=== PATIENT | male | born 1995 | race Caucasian/White ===

== ENCOUNTER 2018-07-31 12:20 | Inpatient (IN) | payer OTHER ==
[2018-07-28 11:28] VITALS: BMI 19.8
[2018-07-31] MEDS ORDERED: oxyCODONE HCL 5 MG TABLET ONE (13:19)
[2018-07-31] MEDS ORDERED: oxyCODONE HCL 5 MG TABLET PO ONE ×2 (13:28→16:30)
[2018-07-31] MEDS ORDERED: oxyCODONE HCL 10 MG SUSTAINED ACTING TABLET PO ONE (16:16)
[2018-07-31] MEDS ORDERED: oxyCODONE HCL 10 MG SUSTAINED ACTING TABLET ONE (16:18)
[2018-07-31] MEDS ORDERED: HEPARIN NA (PORCINE) 5,000 UNITS/ML 1ML VIAL ONE (19:59)
[2018-07-31] MEDS ORDERED: BUPIVACAINE LIPOSOME/PF (EXPAREL) 266 MG/20 ML VIAL NR ONE (20:00)
[2018-07-31] MEDS ORDERED: THROMBIN (BOVINE) 20,000 UNIT VIAL TP ONE (20:00)
[2018-07-31] MEDS ORDERED: MIDAZOLAM HCL 2 MG/2 ML SINGLE DOSE VIAL ONE (20:36)
[2018-07-31] MEDS ORDERED: fentaNYL CITRATE 250 MCG/5 ML VIAL ONE ×2 (20:36→21:27)
[2018-07-31] MEDS ORDERED: PROPOFOL 20 ML ONE ×6 (20:37→22:10)
[2018-07-31] MEDS ORDERED: ROCURONIUM BROMIDE 50 MG/5 ML VIAL ONE (20:37)
[2018-07-31] MEDS ORDERED: SUCCINYLCHOLINE CHLORIDE 200 MG/10 ML VIAL ONE (20:37)
[2018-07-31] MEDS ORDERED: LIDOCAINE HCL/PF 2% SDV 5ML VIAL ONE (20:39)
[2018-07-31] MEDS ORDERED: VANCOMYCIN 1,000 MG VIAL (RESTRICTED TO ID ONLY) IVPB ONE (20:55)
[2018-07-31] MEDS ORDERED: ceFAZolin SODIUM 1 GM VIAL IVPB ONE (20:55)
[2018-07-31] MEDS ORDERED: THROMBIN (BOVINE) 5,000 UNIT VIAL TP ONE (21:00)
[2018-07-31] MEDS ORDERED: GELATIN, ABSORBABLE 12-7MM EACH SPONGE TP ONE (21:00)
[2018-07-31] MEDS ORDERED: ceFAZolin SODIUM 1 GM VIAL ONE (21:03)
[2018-07-31] MEDS ORDERED: VANCOMYCIN 1,000 MG VIAL (RESTRICTED TO ID ONLY) ONE (21:03)
[2018-07-31] MEDS ORDERED: TRANEXAMIC ACID 1000 MG/10 ML VIAL ONE (21:10)
[2018-07-31] MEDS ORDERED: DEXAMETHASONE SOD PHOSPHATE 4 MG/1 ML VIAL ONE (22:10)
[2018-07-31] MEDS ORDERED: ONDANSETRON 4 MG/2 ML VIAL ONE ×2 (22:10→23:25)
[2018-07-31] MEDS ORDERED: GLYCOPYRROLATE 0.2 MG/1 ML VIAL ONE (22:33)
[2018-07-31] MEDS ORDERED: NEOSTIGMINE METHYLSULFATE 0.5 MG/1 ML - 10 ML MDV ONE (22:34)
--- NOTE | 2018-07-31 23:43 | PN ---
Progress Note (short form) - Note Progress Note: 22M s/p L5 laminectomy; L4 & S1 laminotomies; L5-S1 PLIF; L5-S1 posterior instrumentation; L5-S1 posterolateral arthrodesis; bone graft; bone marrow aspiration POD #0. -Admit to ICU post-op. 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 -DVT PPx: - Mechanical only: LEDA's, SCD's. -Incentive spirometry q15min. -PT/OT/Rehab, OOB. -WBAT B/L LE. -q4h B/L LE NV checks. -Post-op antibiotics x 2 doses. -NPO until flatus. -f/u AM labs. -f/u drain output. -d/c Reyes catheter when patient ambulating comfortably. -Care per ICU & medical hospitalist team. -Discharge planning: f/u 08/11/2018 at [facility] [place] office; call for appointment; . -Will follow. Rohith Campo MD (Orthopaedic Surgery).
[2018-07-31] MEDS ORDERED: LACTATED RINGERS SOLUTION 1,000 ML IV SCH (23:45)
--- NOTE | 2018-07-31 23:46 | OP ---
Operative Note - Note: Operative Date: 07/31/18 Pre-Operative Diagnosis: 1. 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 2. L5-S1 spinal stenosis with neurogenic claudication. 3. L5-S1 segmental instability Operation: 1. L5 laminectomy. 2. L3 & S1 laminotomies. 3. L5-S1 PLIF. 4. L5 facetectomy/osteotomy. 5. L5-S1 posterior instrumentation. 6. L5-S1 posterolateral arthrodesis. 7. Bone autograft. 8. Bone allograft. 9. Bone marrow aspiration. 10. Complex wound closure (10cm). 11. Biplanar fluoroscopy. 12. Intra-operative neural monitoring. 13. Bilateral L4, L5, S1 dorsal ramus nerve blocks. Post-Operative Diagnosis: Same as Pre-op Surgeon: Rohith Campo Public Safety Director: Tye Campo Anesthesiologist/SOURCING ASSISTANT: Ashley Sung Anesthesia: General, Local Specimens Removed: L5-S1 disc Estimated Blood Loss (mls): 600 Drains & Tubes with Location: 1 x deep HemoVac Blood Volume Replaced (mls): 140 (Cell Saver) Fluid Volume Replaced (mls): 1,400 (Crystalloid) Operative Report Dictated: Yes
[2018-07-31] MEDS ORDERED: ONDANSETRON 4 MG/2 ML VIAL IVPUSH PRN (23:49)
[2018-08-01] MEDS ORDERED: ONDANSETRON 4 MG/2 ML VIAL IVPUSH PRN (00:04)
[2018-08-01] MEDS ORDERED: ACETAMINOPHEN 1000 MG/100 ML VIAL (NON FORMULARY) IVPB ONE (00:04)
[2018-08-01] MEDS: ACETAMINOPHEN 1000 MG/100 ML VIAL (NON FORMULARY) IVPB SCH ×3 (00:10→15:55)
[2018-08-01] MEDS: HYDROmorphone *PCA* 10MG/50ML DISP.SYRIN PCA SCH ×2 (00:20→19:40)
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
[2018-08-01] MEDS ORDERED: HYDROmorphone *PCA* 10MG/50ML DISP.SYRIN PCA SCH (02:03)
[2018-08-01] MEDS: LACTATED RINGERS SOLUTION 1,000 ML IV SCH ×2 (03:03→08:33)
[2018-08-01] MEDS: CEFAZOLIN 1 GM/D5W 1 GM/50 ML BAG IVPB SCH ×2 (05:05→12:50)
[2018-08-01 06:30] LABS: HEMATOCRIT 38.2 % (35.4-49); HEMOGLOBIN 12.6 GM/dL (11.7-16.9); MCH 30.9 pg (25.7-33.7); MCHC 32.9 g/dl (32.0-35.9); MEAN CELL VOLUME 93.9 fl (80-96); MEAN PLT VOLUME 8.2 fl (7.5-11.1); PLATELET COUNT 185 K/MM3 (134-434); RBC 4.07 M/mm3 (4.00-5.60); RDW 13.3 % (11.9-15.9); WHITE BLOOD COUNT 7.4 K/mm3 (4.0-10.0)
[2018-08-01 06:51] LABS: ANION GAP 7 MMOL/L (8-16); BLOOD UREA NITROGEN 14 mg/dL (7-18); CHLORIDE 104 mmol/L (98-107); CO2 27 mmol/L (21-32); CREATININE 0.9 mg/dL (0.55-1.3); GLUCOSE,RANDOM 113 mg/dL (74-106); POTASSIUM 4.6 mmol/L (3.5-5.1); SODIUM 137 mmol/L (136-145)
[2018-08-01] MEDS ORDERED: oxyCODONE HCL 5 MG TABLET PO PRN (08:38)
[2018-08-01] MEDS ORDERED: PT OWN MED DRAWER 7, Y5N ONE (09:32)
--- NOTE | 2018-08-01 09:44 | PN ---
Progress Note (short form) - Note Progress Note: Anesthesiology Post-op/Pain Service 22 y.o. man POD#1 s/p lumbar PLIF under GA with post-op FIREWALL SECURITY ENGINEER. Pt. is sitting -up, taking PO without difficulty in NAD. He does c/o pain and had been using FIREWALL SECURITY ENGINEER. VSS. No other complaints. 22 y.o. man with stable post-operative course. Will d/c FIREWALL SECURITY ENGINEER and start PO pain meds. d/w RN and pt.
--- NOTE | 2018-08-01 09:53 | OP ---
DATE OF OPERATION: DATE OF DICTATION: 07/31/2018 SURGEON: Rohith Campo MD VEHICLE OPERATOR TECHNICIAN: Tye Campo MD PRE-OP DIAGNOSIS: 1. 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 2. L5-S1 spinal stenosis with neurogenic claudication. 3. L5-S1 segmental instability POST-OP DIAGNOSIS: 1. 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 2. L5-S1 spinal stenosis with neurogenic claudication. 3. L5-S1 segmental instability OPERATION: 1. L5 laminectomy. 2. L3 & S1 laminotomies. 3. L5-S1 PLIF. 4. L5 facetectomy/osteotomy. 5. L5-S1 posterior instrumentation. 6. L5-S1 posterolateral arthrodesis. 7. Bone autograft. 8. Bone allograft. 9. Bone marrow aspiration. 10. Complex wound closure (15cm). 11. Biplanar fluoroscopy. 12. Intra-operative neural monitoring. 13. Bilateral L4, L5, S1 dorsal ramus nerve blocks (Marcaine & Exparel). ANESTHESIA: General. ANTIBIOTICS GIVEN: Kefzol 2 g, 1 g of vancomycin preoperatively. OPERATION IN DETAIL: The patient correctly identified, brought to the operating room. Imaging was available for intraoperative evaluation. Timeout was called. The patient placed prone on a Olu table. All bony prominences padded appropriately. Eyes were padded for pressure and the table was set at 10 degrees in deep Trendelenburg for optic vein venous flow. A midline incision was utilized from the tip of the spinous process of L4 to the tip of the spinous process of S1. Subperiosteal dissection was performed. Anatomical guidelines revealed the correct levels of the last mobile segment of the spine. A lateral fluoroscopic x-ray confirmed the correct disk for resection which was the L5-S1 disk depending on the nomenclature of the spine. Using Leksell rongeurs and Maikel bone cutters the lamina of L5 was resected in order to resect laterally. The pars interarticularis as well as the inferior facet was osteotomized imploding the bone inwards. The disk from the right-hand side was approached with a nerve root retractor being placed under the theca distracting it from right to left. The large epidural veins were dealt with with bipolar Bovie. Large bulging disk was encountered, but most applicable to this case was the malalignment of facet joints readily seen that were subluxed completely on each other at L5-S1. The disk of L5-S1 was dealt with as follows: A transverse annulotomy was performed. Jomar right up to size 12 were inserted. All disk material was removed using pituitary rongeurs. Serrated curets helped ensure that the endplates were free of any soft tissue. Once this had been performed the interbody space was packed with the bone that was harvested previously and packed into the interspace at L5-S1. A size 13, 22 x 13-mm cage inserted. The cage itself was packed with bone graft. Solid fixation, excellent position seen on lateral fluoroscopic x-ray once inserted. The pedicles of L5-S1 were identified using anatomical guidelines. Lateral fluoroscopic x-ray enabled the 4.5 drill was used to drill through the pedicle into the vertebral body. The 45 x 6.5 screws at L5 and 6.5 x 40-mm screws at L4 inserted. Screws were tested with neural monitoring and found to be completely safe in the appropriate parameters of safety, that is well above 20 mA for each screw except in the right S1 screw which measured 12 mA. The rods were measured. These were 40-mm rods fixed to the capture and the caps tightened appropriately with the appropriate torque device from the [employer] instrumentation system. The wounds were thoroughly lavaged. Bone grafting which was a combination of autologous bone, allograft bone and this mixed with stem cells harvested from the left posterior ilium. A Jamshidi needle was placed into the posterior ilium aspirating 60 mL of marrow. This enabled a rich biological bone grafting to the transverse process/alar interface appropriately. Wounds were thoroughly lavaged. Closure: Muscle 1 Vicryl, fascia 1 Vicryl, subcu 1 and 2-0 Vicryl, skin 3-0 Monocryl with Steri-Strips. Drainage: A 1/8-inch Hemovac x1 deep. No complications. Operation went extremely well. It was reported as the intraoperative neural monitoring revealed once the decompression and diskectomy were performed that the actual neural monitoring of the quadriceps as well as sciatic nerves improved dramatically. Patient was transferred out of the operating room and will be nursed in the ICU postoperatively. MD MANJEET [id number] MTDCarrillo
[2018-08-01] MEDS: LYTES/YERBA SANTA 240 ML BOTTLE MM SCH (09:56)
[2018-08-01] MEDS ORDERED: LYTES/YERBA SANTA 240 ML BOTTLE MM SCH (10:00)
[2018-08-01] MEDS: FAMOTIDINE 20 MG/50 ML IVPB 20 MG/50 ML MG IVPB SCH ×2 (10:01→22:38)
[2018-08-01] MEDS: oxyCODONE HCL 5 MG TABLET PO PRN ×3 (10:08→23:37)
[2018-08-01] MEDS ORDERED: HYDROmorphone HCl 2 MG/ML VIAL IVPB ONE (11:31)
[2018-08-01] MEDS: KETOROLAC TROMETHAMINE 30 MG/1 ML VIAL IM SCH ×2 (11:52→17:41)
--- NOTE | 2018-08-01 12:26 | PN ---
Teaching Attending Note Name of Resident: Taylor Burch ATTENDING PHYSICIAN STATEMENT I saw and evaluated the patient. I reviewed the resident's note and discussed the case with the resident. I agree with the resident's findings and plan as documented. SUBJECTIVE: Patient seen and examined in the ICU. Awake and alert. Unable to pass urine has he traumatically pulled his wiley out in the PACU. Urology has been called. No CP or SOB. Post op pain is 8/10. Noted FARE ENFORCEMENT OFFICER was discontinued by anesthesia. Intake & Output 07/29/18 07/30/18 07/31/18 08/01/18 23:59 23:59 23:59 23:59 Intake Total 1840 50 Output Total 1030 50 Balance 810 0 Last Vital Signs Temp Pulse Resp BP Pulse Ox 98.7 F 97 H 8 L 131/83 100 08/01/18 10:00 08/01/18 12:00 08/01/18 12:00 08/01/18 12:00 08/01/18 00:45 Active Medications Acetaminophen (Ofirmev Injection -) 1,000 mg IVPB Q8H [facility] Stop: 08/01/18 15:46 Last Admin: 08/01/18 09:43 Dose: 1,000 mg Cefazolin Sodium (Ancef 1 Gm Premixed Ivpb -) 1 gm in 50 mls @ 100 mls/hr IVPB Q8H [facility] Stop: 08/01/18 13:29 Last Admin: 08/01/18 05:05 Dose: 100 mls/hr Lactated Ringer's (Lactated Ringers Solution) 1,000 mls @ 125 mls/hr IV ASDIR [facility] Last Admin: 08/01/18 00:20 Dose: 50 mls Lactated Ringer's (Lactated Ringers Solution) 1,000 mls @ 125 mls/hr IV ASDIR [facility] Last Admin: 08/01/18 08:33 Dose: 125 mls/hr Famotidine/Sodium Chloride (Pepcid 20 Mg Premixed Ivpb -) 20 mg in 50 mls @ 100 mls/hr IVPB BID [facility] Last Admin: 08/01/18 10:01 Dose: 100 mls/hr Ketorolac Tromethamine (Toradol Injection -) 30 mg IM Q8H-IV [facility] Stop: 08/01/18 18:01 Last Admin: 08/01/18 11:52 Dose: 30 mg Ondansetron HCl (Zofran Injection) 4 mg IVPUSH Q6H PRN PRN Reason: NAUSEA AND/OR VOMITING Ondansetron HCl (Zofran Injection) 4 mg IVPUSH Q6H PRN PRN Reason: NAUSEA AND/OR VOMITING Oxycodone HCl (Roxicodone -) 10 mg PO Q6H PRN PRN Reason: PAIN LEVEL 6-10 Last Admin: 08/01/18 09:03 Dose: 10 mg Oxycodone HCl (Roxicodone -) 5 mg PO Q4H PRN PRN Reason: PAIN LEVEL 1-5 Last Admin: 08/01/18 10:08 Dose: 5 mg Saliva Substitute (Mouthkote Solution -) 1 applic MM DAILY [facility] Last Admin: 08/01/18 09:56 Dose: 1 applic Constitutional: Yes: Agitated, NAD Eyes: Yes: Conjunctiva Clear, EOM Intact, PERRL HENT: Yes: Atraumatic, Normocephalic, Other (very dry mucous membranes). No: Thrush Neck: Yes: Supple, Trachea Midline. No: Lymphadenopathy, Thyromegaly Cardiovascular: Yes: Regular Rate and Rhythm. No: Murmur Respiratory: Yes: Regular, CTA Bilaterally ...Inspection: Yes: Trachea Midline Gastrointestinal: Yes: (+) supra-pubic distention Musculoskeletal: Yes: Back Pain Extremities: Yes: WNL Edema: No Peripheral Pulses WNL: Yes Neurological: Yes: Alert, Oriented Laboratory Results - last 24 hr 07/31/18 07/31/18 08/01/18 12:34 13:40 05:30 WBC 7.4 RBC 4.07 Hgb 12.6 Hct 38.2 MCV 93.9 MCH 30.9 MCHC 32.9 RDW 13.3 Plt Count 185 MPV 8.2 Sodium Potassium Chloride Carbon Dioxide Anion Gap BUN Creatinine Creat Clearance w eGFR Random Glucose Calcium Blood Type A POSITIVE A POSITIVE Antibody Screen Negative 08/01/18 05:30 WBC RBC Hgb Hct MCV MCH MCHC RDW Plt Count MPV Sodium 137 Potassium 4.6 Chloride 104 Carbon Dioxide 27 Anion Gap 7 L BUN 14 Creatinine 0.9 Creat Clearance w eGFR > 60 Random Glucose 113 H Calcium 9.0 Blood Type Antibody Screen Assessment/Plan POD #1: 1. L5 laminectomy 2. L3 & S1 laminotomies 3. L5-S1 PLIF 4. L5 facetectomy/osteotomy 5. L5-S1 posterior instrumentation 6. L5-S1 posterolateral arthrodesis 7. Bone autograft 8. Bone allograft 9. Bone marrow aspiration 10. Complex wound closure (10cm) 11. Biplanar fluoroscopy 12. Intra-operative neural monitoring 13. Bilateral L4, L5, S1 dorsal ramus nerve blocks Urinary retention due to traumatic wiley removal by patient Urology evaluation Pain control Incentive Spirometry VTE prophylaxis PO as tolerated PT Neuro checks Floor when OK with surgical attending Dr Reese
--- NOTE | 2018-08-01 13:19 | CONSULT ---
Consult - text type - Consultation Consultation Note: called to see 22 yo pt s/p laminectomy L5-S1 who self d/c ed wiley w resulting gross hematuria staff unable to pass catheter Pt now c/o distention and pain unable to void 18 fr wiley placed to SD approx 1200 cc drained without difficulty urine clear Consider voiding trial in am or when more mobile
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
[2018-08-01] MEDS: MORPHINE SULFATE 2 MG/ML VIAL IVPUSH PRN ×2 (15:54→20:06)
--- NOTE | 2018-08-01 20:36 | PN ---
Progress Note, Physician History of Present Illness: 23 HR EVENTS: s/p L5, L3, S1 laminectomy, L5 facetectomy/osteotomy pt pulled out wiley in PACU, no urine output overnight. At the time of exam, pt with severe pelvic and lower back pain resulting in tachycardia. Urology called for wiley placement. pt now tolerating orals - Current Medication List Current Medications: Active Medications Famotidine/Sodium Chloride (Pepcid 20 Mg Premixed Ivpb -) 20 mg in 50 mls @ 100 mls/hr IVPB BID [facility] Last Admin: 08/01/18 10:01 Dose: 100 mls/hr Morphine Sulfate (Morphine Sulfate) 2 mg IVPUSH Q3H PRN PRN Reason: PAIN LEVEL 6-10 Last Admin: 08/01/18 20:06 Dose: 2 mg Ondansetron HCl (Zofran Injection) 4 mg IVPUSH Q6H PRN PRN Reason: NAUSEA AND/OR VOMITING Ondansetron HCl (Zofran Injection) 4 mg IVPUSH Q6H PRN PRN Reason: NAUSEA AND/OR VOMITING Oxycodone HCl (Roxicodone -) 10 mg PO Q6H PRN PRN Reason: PAIN LEVEL 1-5 Saliva Substitute (Mouthkote Solution -) 1 applic MM DAILY [facility] Last Admin: 08/01/18 09:56 Dose: 1 applic - Objective Vital Signs: Vital Signs Temperature 99.1 F 08/01/18 18:00 Pulse Rate 97 H 08/01/18 20:00 Respiratory Rate 15 08/01/18 20:00 Blood Pressure 132/74 08/01/18 20:00 O2 Sat by Pulse Oximetry (%) 100 08/01/18 00:45 Labs: CBC, BMP 08/01/18 05:30 08/01/18 05:30 Problem List - Problems (1) S/P laminectomy Assessment/Plan: progress diet as tolerated IC ambulate with PT pain control with oxycodone and morphine Code(s): Z98.890 - OTHER SPECIFIED POSTPROCEDURAL STATES Impression/Plan Impression/Plan: DISPO: transfer to step floor DVT PPX: venodynes GI: pepcid, Zofran PRN nausea d/c wiley in the morning. Visit type - Emergency Visit Emergency Visit: No - New Patient This patient is new to me today: Yes Date on this admission: 07/31/18 - Critical Care Critical Care patient: Yes Total Critical Care Time (in minutes): 30 Critical Care Statement: The care of this patient involved high complexity decision making to prevent further life threatening deterioration of the patient 's condition and/or to evaluate & treat vital organ system(s) failure or risk of failure. - Discharge Referral Referred to [facility] Med P.C.: No
[2018-08-01] MEDS: SENNOSIDES/DOCUSATE COMBO (SENNA PLUS) TABLET (UD) PO SCH (22:38)
[2018-08-02] MEDS: oxyCODONE HCL 5 MG TABLET PO PRN ×3 (06:17→21:21)
[2018-08-02 06:37] LABS: BASO % 0.3 % (0-2.0); EOS % 1.5 % (0-4.5); HEMATOCRIT 31.7 % (35.4-49); HEMOGLOBIN 11.1 GM/dL (11.7-16.9); LYMPH % 26.2 % (8-40); MCH 32.9 pg (25.7-33.7); MCHC 35.1 g/dl (32.0-35.9); MEAN CELL VOLUME 93.6 fl (80-96); MEAN PLT VOLUME 8.3 fl (7.5-11.1); MONO % 9.2 % (3.8-10.2); NEUT % 62.8 % (42.8-82.8); PLATELET COUNT 164 K/MM3 (134-434); RBC 3.39 M/mm3 (4.00-5.60); RDW 13.6 % (11.9-15.9); WHITE BLOOD COUNT 7.4 K/mm3 (4.0-10.0)
[2018-08-02] MEDS: MORPHINE SULFATE 2 MG/ML VIAL IVPUSH PRN ×3 (07:17→18:15)
[2018-08-02 09:09] LABS: GLUCOSE,RANDOM 119 mg/dL (74-106)
[2018-08-02 09:10] LABS: ANION GAP 5 MMOL/L (8-16); BLOOD UREA NITROGEN 13 mg/dL (7-18); CALCIUM 8.1 mg/dL (8.5-10.1); CHLORIDE 107 mmol/L (98-107); CO2 30 mmol/L (21-32); CREATININE 0.9 mg/dL (0.55-1.3); PHOSPHOROUS 5.1 mg/dL (2.5-4.9); POTASSIUM 3.5 mmol/L (3.5-5.1); SODIUM 142 mmol/L (136-145)
[2018-08-02 09:11] LABS: ALBUMIN 3.2 g/dl (3.4-5.0); ALK PHOS 40 U/L (45-117); BILIRUBIN,TOTAL 0.3 mg/dL (0.2-1); MAGNESIUM 2.5 mg/dL (1.8-2.4); SGOT/AST 21 U/L (15-37); SGPT/ALT 23 U/L (13-61); TOT PROT 5.6 g/dl (6.4-8.2)
[2018-08-02] MEDS: LYTES/YERBA SANTA 240 ML BOTTLE MM SCH (09:39)
[2018-08-02] MEDS: FAMOTIDINE 20 MG/50 ML IVPB 20 MG/50 ML MG IVPB SCH (10:02)
[2018-08-02] MEDS ORDERED: POTASSIUM CHLORIDE TABS 20 MEQ TABLET.ER (FP) PO ONE (10:06)
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
[2018-08-02] MEDS: DOCUSATE SODIUM 100 MG CAPSULE (FP) PO SCH (11:39)
--- NOTE | 2018-08-02 12:12 | PN ---
Teaching Attending Note Name of Resident: Hubert Acevedo ATTENDING PHYSICIAN STATEMENT I saw and evaluated the patient. I reviewed the resident's note and discussed the case with the resident. I agree with the resident's findings and plan as documented. SUBJECTIVE: Pt seen and examined in the ICU. Still with pain. No nausea or vomiting. Tolerating diet. No fevers or chills. No shortness of breath or chest pain. OBJECTIVE: Vital Signs Period Temp Pulse Resp BP Sys/Anthony Pulse Ox Last 24 Hr 98.3 F-99.1 F 54-100 12-17 97-132/49-78 97-97 Intake & Output 07/30/18 07/31/18 08/01/18 08/02/18 23:59 23:59 23:59 23:59 Intake Total 1840 1610 Output Total 1030 2850 Balance 810 -1240 Gen: NAD at rest Heart: RRR Lung: decreased breath sounds at the bases Abd: soft, nontender Ext: no edema Drain with serosanguinous fluid CBC, BMP 08/02/18 05:30 08/02/18 05:30 Active Medications Docusate Sodium (Colace -) 100 mg PO DAILY [facility] Last Admin: 08/02/18 11:39 Dose: 100 mg Famotidine/Sodium Chloride (Pepcid 20 Mg Premixed Ivpb -) 20 mg in 50 mls @ 100 mls/hr IVPB BID MEL Last Admin: 08/02/18 10:02 Dose: 100 mls/hr Morphine Sulfate (Morphine Sulfate) 2 mg IVPUSH Q3H PRN PRN Reason: PAIN LEVEL 6-10 Last Admin: 08/02/18 10:17 Dose: 2 mg Ondansetron HCl (Zofran Injection) 4 mg IVPUSH Q6H PRN PRN Reason: NAUSEA AND/OR VOMITING Ondansetron HCl (Zofran Injection) 4 mg IVPUSH Q6H PRN PRN Reason: NAUSEA AND/OR VOMITING Oxycodone HCl (Roxicodone -) 10 mg PO Q6H PRN PRN Reason: PAIN LEVEL 1-5 Last Admin: 08/02/18 06:17 Dose: 10 mg Polyethylene Glycol (Miralax (For Daily Use) -) 17 gm PO DAILY [facility] Saliva Substitute (Mouthkote Solution -) 1 applic MM DAILY MEL Last Admin: 08/02/18 09:39 Dose: Not Given Senna/Docusate Sodium (Pericolace -) 1 tablet PO HS MEL Last Admin: 08/01/18 22:38 Dose: 1 tablet ASSESSMENT AND PLAN: L5-S1 Spinal Stenosis with Neurogenic Claudication/Radiculopathy s/p L5, L3, S1 Laminectomies/L5-S1 PLIF/instrumentation - pain control - incentive spirometry - monitor drain output - bowel regimen - d/c wiley - OOB - rehab/PT - DVT prophylaxis - can monitor on floor
[2018-08-02] MEDS ORDERED: HYDROmorphone HCl 2 MG/ML VIAL IVPUSH ONE (13:14)
[2018-08-02] MEDS: POLYETHYLENE GLYCOL 3350 119 GM BTL PO SCH (13:24)
--- NOTE | 2018-08-02 18:45 | PATH ---
Surgical Pathology Report Patient Name: BENJAMIN RODNEY Med. Rec. #: [id number] /Age/Gender: 1995 (Age: 22) / M Account: [id number] Location: [facility] Taken: 07/31/2018 Received: 08/01/2018 Reported: 08/02/2018 Physicians: Rohith Campo M.D. Specimen(s) Received L5-S1 DISC Clinical History Spinal stenosis lumbar region Final Diagnosis DISC, L5-S1, POSTERIOR LUMBAR INTERBODY FUSION: BENIGN INTERVERTEBRAL DISC TISSUE, BONE, AND BONE MARROW WITH TRILINEAGE HEMATOPOIESIS. Electronically Signed Virginia Hayden M.D. Gross Description Received in formalin labeled "disc L5-S1," is a 4.5 x 3.8 x 0.4 cm aggregate of coates fragments of fibrocartilaginous tissue. A healthcare sales representative portion is submitted in one cassette. /08/01/2018 saudi08/01/2018
--- NOTE | 2018-08-02 19:49 | PN ---
Progress Note, Physician Chief Complaint: 23 HR EVENTS: - Amy d/pari this AM - pt reports lack of pain control -pt continues to work with PT - Current Medication List Current Medications: Active Medications Docusate Sodium (Colace -) 100 mg PO DAILY [facility] Last Admin: 08/02/18 11:39 Dose: 100 mg Famotidine/Sodium Chloride (Pepcid 20 Mg Premixed Ivpb -) 20 mg in 50 mls @ 100 mls/hr IVPB BID [facility] Last Admin: 08/02/18 10:02 Dose: 100 mls/hr Morphine Sulfate (Morphine Sulfate) 2 mg IVPUSH Q3H PRN PRN Reason: PAIN LEVEL 6-10 Last Admin: 08/02/18 18:15 Dose: 2 mg Ondansetron HCl (Zofran Injection) 4 mg IVPUSH Q6H PRN PRN Reason: NAUSEA AND/OR VOMITING Ondansetron HCl (Zofran Injection) 4 mg IVPUSH Q6H PRN PRN Reason: NAUSEA AND/OR VOMITING Oxycodone HCl (Roxicodone -) 10 mg PO Q6H PRN PRN Reason: PAIN LEVEL 1-5 Last Admin: 08/02/18 12:52 Dose: 10 mg Polyethylene Glycol (Miralax (For Daily Use) -) 17 gm PO DAILY [facility] Last Admin: 08/02/18 13:24 Dose: 17 gm Saliva Substitute (Mouthkote Solution -) 1 applic MM DAILY [facility] Last Admin: 08/02/18 09:39 Dose: Not Given Senna/Docusate Sodium (Pericolace -) 1 tablet PO HS [facility] Last Admin: 08/01/18 22:38 Dose: 1 tablet - Objective Vital Signs: Vital Signs Temperature 100.7 F H 08/02/18 18:00 Pulse Rate 92 H 08/02/18 18:00 Respiratory Rate 18 08/02/18 18:00 Blood Pressure 115/77 08/02/18 18:00 O2 Sat by Pulse Oximetry (%) 97 08/02/18 08:00 Constitutional: Yes: Well Nourished, No Distress, Calm Eyes: Yes: Conjunctiva Clear, PERRL HENT: Yes: Atraumatic, Normocephalic Neck: Yes: Supple Cardiovascular: Yes: Regular Rate and Rhythm Respiratory: Yes: Regular, CTA Bilaterally Gastrointestinal: Yes: Normal Bowel Sounds, Soft ...Rectal Exam: Yes: Deferred Musculoskeletal: Yes: Back Pain Extremities: Yes: WNL Edema: No Peripheral Pulses WNL: Yes Integumentary: Yes: WNL Wound/Incision: Yes: Clean/Dry, Dressing Dry and Intact Neurological: Yes: Alert, Oriented ...Motor Strength: WNL Psychiatric: Yes: Alert, Oriented Labs: CBC, BMP 08/02/18 05:30 08/02/18 05:30 - ....Imaging Chest X-ray: Report Reviewed (cxr 08/02: no acute pathology) Problem List - Problems (1) S/P laminectomy Assessment/Plan: transfer to floor IC ambulate with PT pain control with oxycodone and morphine Code(s): Z98.890 - OTHER SPECIFIED POSTPROCEDURAL STATES Impression/Plan Impression/Plan: DISPO: transfer to step floor DVT PPX: venodynes GI: pepcid, Zofran PRN nausea Visit type - Emergency Visit Emergency Visit: No - New Patient This patient is new to me today: No - Critical Care Critical Care patient: Yes Total Critical Care Time (in minutes): 30 Critical Care Statement: The care of this patient involved high complexity decision making to prevent further life threatening deterioration of the patient 's condition and/or to evaluate & treat vital organ system(s) failure or risk of failure. - Discharge Referral Referred to [facility] Med P.C.: No
[2018-08-02] MEDS: SENNOSIDES/DOCUSATE COMBO (SENNA PLUS) TABLET (UD) PO SCH (21:22)
[2018-08-03] MEDS: MORPHINE SULFATE 2 MG/ML VIAL IVPUSH PRN ×4 (02:02→12:41)
[2018-08-03] MEDS ORDERED: ACETAMINOPHEN 1000 MG/100 ML VIAL (NON FORMULARY) IVPB ONE (02:55)
[2018-08-03] MEDS: oxyCODONE HCL 5 MG TABLET PO PRN ×4 (04:17→23:01)
[2018-08-03 06:30] LABS: BASO % 0.3 % (0-2.0); EOS % 2.5 % (0-4.5); HEMATOCRIT 32.5 % (35.4-49); HEMOGLOBIN 11.4 GM/dL (11.7-16.9); LYMPH % 28.5 % (8-40); MEAN CELL VOLUME 94.2 fl (80-96); MEAN PLT VOLUME 8.2 fl (7.5-11.1); MONO % 12.6 % (3.8-10.2); NEUT % 56.1 % (42.8-82.8); PLATELET COUNT 146 K/MM3 (134-434); RBC 3.45 M/mm3 (4.00-5.60); RDW 13.5 % (11.9-15.9); WHITE BLOOD COUNT 6.1 K/mm3 (4.0-10.0)
[2018-08-03 08:08] LABS: ALBUMIN 3.4 g/dl (3.4-5.0); ALK PHOS 48 U/L (45-117); ANION GAP 8 MMOL/L (8-16); BILIRUBIN,TOTAL 0.5 mg/dL (0.2-1); BLOOD UREA NITROGEN 7 mg/dL (7-18); CALCIUM 8.2 mg/dL (8.5-10.1); CHLORIDE 105 mmol/L (98-107); CO2 28 mmol/L (21-32); CREATININE 0.9 mg/dL (0.55-1.3); GLUCOSE,RANDOM 97 mg/dL (74-106); MAGNESIUM 1.9 mg/dL (1.8-2.4); PHOSPHOROUS 3.6 mg/dL (2.5-4.9); POTASSIUM 3.6 mmol/L (3.5-5.1); SGOT/AST 77 U/L (15-37); SGPT/ALT 79 U/L (13-61); SODIUM 141 mmol/L (136-145); TOT PROT 5.9 g/dl (6.4-8.2)
[2018-08-03] MEDS: DOCUSATE SODIUM 100 MG CAPSULE (FP) PO SCH (09:36)
--- NOTE | 2018-08-03 09:44 | PN ---
Progress Note (short form) - Note Progress Note: POD#3 In ICU C/O incisional pain original pain gone no leg pain Vitals as per chart Passed flatus Abd soft Wound Bandage dry Drain pulled Neuro At base line ASSESS Doing well PLAN D/C home when stabilized PAIN mx See in office 1 week
[2018-08-03] MEDS: POLYETHYLENE GLYCOL 3350 119 GM BTL PO SCH (10:06)
[2018-08-03] MEDS: LYTES/YERBA SANTA 240 ML BOTTLE MM SCH (10:06)
--- NOTE | 2018-08-03 11:38 | PN ---
Teaching Attending Note Name of Resident: Taylor Burch ATTENDING PHYSICIAN STATEMENT I saw and evaluated the patient. I reviewed the resident's note and discussed the case with the resident. I agree with the resident's findings and plan as documented. SUBJECTIVE: Patient seen and examined in the ICU. Still with pain, 8/10. No nausea or vomiting. Tolerating diet. No fevers or chills. No shortness of breath or chest pain. OBJECTIVE: Intake & Output 07/31/18 08/01/18 08/02/18 08/03/18 23:59 23:59 23:59 23:59 Intake Total 1840 1610 580 Output Total 1030 2850 900 Balance 810 -1240 -320 Weight 150 lb Last Vital Signs Temp Pulse Resp BP Pulse Ox 99.4 F 91 H 16 119/77 97 08/03/18 10:00 08/03/18 10:00 08/03/18 10:00 08/03/18 10:00 08/03/18 09:00 Active Medications Docusate Sodium (Colace -) 100 mg PO DAILY [facility] Last Admin: 08/03/18 09:36 Dose: 100 mg Morphine Sulfate (Morphine Sulfate) 2 mg IVPUSH Q3H PRN PRN Reason: PAIN LEVEL 6-10 Last Admin: 08/03/18 09:31 Dose: 2 mg Ondansetron HCl (Zofran Injection) 4 mg IVPUSH Q6H PRN PRN Reason: NAUSEA AND/OR VOMITING Ondansetron HCl (Zofran Injection) 4 mg IVPUSH Q6H PRN PRN Reason: NAUSEA AND/OR VOMITING Oxycodone HCl (Roxicodone -) 10 mg PO Q6H PRN PRN Reason: PAIN LEVEL 1-5 Last Admin: 08/03/18 09:57 Dose: 10 mg Polyethylene Glycol (Miralax (For Daily Use) -) 17 gm PO DAILY [facility] Last Admin: 08/03/18 10:06 Dose: 17 gm Saliva Substitute (Mouthkote Solution -) 1 applic MM DAILY [facility] Last Admin: 08/03/18 10:06 Dose: Not Given Senna/Docusate Sodium (Pericolace -) 1 tablet PO HS [facility] Last Admin: 08/02/18 21:22 Dose: 1 tablet Gen: NAD at rest Heart: RRR Lung: decreased breath sounds at the bases Abd: soft, nontender Ext: no edema Laboratory Results - last 24 hr 08/03/18 08/03/18 05:30 05:30 WBC 6.1 RBC 3.45 L Hgb 11.4 L Hct 32.5 L MCV 94.2 MCH 33.0 MCHC 35.0 RDW 13.5 Plt Count 146 MPV 8.2 Absolute Neuts (auto) 3.4 Neutrophils % 56.1 Lymphocytes % 28.5 Monocytes % 12.6 H Eosinophils % 2.5 Basophils % 0.3 Nucleated RBC % 0 Sodium 141 Potassium 3.6 Chloride 105 Carbon Dioxide 28 Anion Gap 8 BUN 7 Creatinine 0.9 Creat Clearance w eGFR > 60 Random Glucose 97 Calcium 8.2 L Phosphorus 3.6 Magnesium 1.9 Total Bilirubin 0.5 AST 77 H ALT 79 H Alkaline Phosphatase 48 Total Protein 5.9 L Albumin 3.4 ASSESSMENT AND PLAN: L5-S1 Spinal Stenosis with Neurogenic Claudication/Radiculopathy s/p L5, L3, S1 Laminectomies/L5-S1 PLIF/instrumentation - pain control - incentive spirometry - monitor drain output - bowel regimen - OOB - rehab/PT - DVT prophylaxis - Floor DC planning Dr Reese
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
[2018-08-03] MEDS ORDERED: morphine CARPU-JECT 2 MG/1 ML DISP.SYRIN IVPUSH PRN (14:23)
[2018-08-03] MEDS ORDERED: morphine SULFATE 4 MG/ML VIAL ONE (15:22)
[2018-08-03] MEDS: morphine SULFATE 4 MG/ML VIAL IVPUSH PRN ×3 (15:29→23:55)
[2018-08-03] MEDS ORDERED: ONDANSETRON 4 MG/2 ML VIAL IVPUSH PRN ×2 (18:00)
[2018-08-03] MEDS: SENNOSIDES/DOCUSATE COMBO (SENNA PLUS) TABLET (UD) PO SCH (21:20)
[2018-08-04] MEDS: morphine SULFATE 4 MG/ML VIAL IVPUSH PRN ×2 (04:18→07:54)
[2018-08-04 07:29] LABS: BASO % 0.3 % (0-2.0); EOS % 3.6 % (0-4.5); HEMATOCRIT 34.3 % (35.4-49); LYMPH % 23.6 % (8-40); MCH 32.8 pg (25.7-33.7); MCHC 35.1 g/dl (32.0-35.9); MEAN CELL VOLUME 93.6 fl (80-96); MONO % 8.8 % (3.8-10.2); NEUT % 63.7 % (42.8-82.8); PLATELET COUNT 160 K/MM3 (134-434); RBC 3.66 M/mm3 (4.00-5.60); RDW 13.2 % (11.9-15.9); WHITE BLOOD COUNT 5.6 K/mm3 (4.0-10.0)
--- NOTE | 2018-08-04 07:52 | PN ---
Physical Exam: SUBJECTIVE: Patient seen and examined, he has severe pain in the back and the complaints is that the medication effect is not long enough. has BM and has no other complaints at this time OBJECTIVE: Vital Signs Period Temp Pulse Resp BP Sys/Anthony Pulse Ox Last 24 Hr 98.0 F-99.8 F 82-98 11-20 102-123/67-87 97-97 GENERAL: The patient is awake, alert, and fully oriented, in no acute distress. HEAD: Normal with no signs of trauma. EYES: PERRL, extraocular movements intact, sclera anicteric, conjunctiva clear. No ptosis. ENT: Ears normal, nares patent, oropharynx clear without exudates, moist mucous membranes. NECK: Trachea midline, full range of motion, supple. LUNGS: Breath sounds equal, clear to auscultation bilaterally, no wheezes, no crackles, no accessory muscle use. HEART: Regular rate and rhythm, S1, S2 without murmur, rub or gallop. ABDOMEN: Soft, nontender, nondistended, normoactive bowel sounds, no guarding, EXTREMITIES: 2+ pulses, warm, well-perfused, no edema. NEUROLOGICAL: Cranial nerves II through XII grossly intact. PSYCH: Normal mood, normal affect. SKIN: Warm, dry, normal turgor, no rashes or lesions noted Laboratory Results - last 24 hr 08/03/18 08/04/18 05:30 06:30 WBC 5.6 RBC 3.66 L Hgb 12.0 Hct 34.3 L MCV 93.6 MCH 32.8 MCHC 35.1 RDW 13.2 Plt Count 160 MPV 8.0 Absolute Neuts (auto) 3.6 Neutrophils % 63.7 Lymphocytes % 23.6 Monocytes % 8.8 Eosinophils % 3.6 Basophils % 0.3 Nucleated RBC % 0 Sodium 141 Potassium 3.6 Chloride 105 Carbon Dioxide 28 Anion Gap 8 BUN 7 Creatinine 0.9 Creat Clearance w eGFR > 60 Random Glucose 97 Calcium 8.2 L Phosphorus 3.6 Magnesium 1.9 Total Bilirubin 0.5 AST 77 H ALT 79 H Alkaline Phosphatase 48 Total Protein 5.9 L Albumin 3.4 Active Medications Generic Name Dose Route Start Last Admin Trade Name Freq PRN Reason Stop Dose Admin Docusate Sodium 100 mg 08/02/18 10:45 08/03/18 09:36 Colace - PO 100 mg DAILY MEL Administration Morphine Sulfate 4 mg 08/03/18 15:25 08/04/18 04:18 Morphine Sulfate IVPUSH 4 mg Q4H PRN Administration PAIN LEVEL 4 - 6 Ondansetron HCl 4 mg 08/03/18 18:00 Zofran Injection IVPUSH Q6H PRN NAUSEA AND/OR VOMITING Oxycodone HCl 10 mg 08/01/18 16:23 08/03/18 23:01 Roxicodone - PO 10 mg Q6H PRN Administration PAIN LEVEL 1-5 Polyethylene Glycol 17 gm 08/02/18 10:45 08/03/18 10:06 Miralax (For Daily Use) - PO 17 gm DAILY MEL Administration Saliva Substitute 1 applic 08/04/18 10:00 Mouthkote Solution - MM DAILY MEL Senna/Docusate Sodium 1 tablet 08/01/18 22:00 08/03/18 21:20 Pericolace - PO 1 tablet HS MEL Administration ASSESSMENT/PLAN: 22 Y/O M S/P multilevel laminectomy , is doing better at this time, tolerating po and having BMS. Post laminectomy and bone transplant;: being evaluated and followed by neurosurgery and is tolerating rehab well. walks with the walker Pain control: Uncontrolled, he states that the pain medication is short acting, will DC the oxycodone short acting and will give him oxycodone 20 mg SR q12h with morphine PRN Has Bowel regimen Will also add lidocaine patch to the back hematuria: trauamatic: resolved and he is urinating with no complaints at this time. DVT ppx:SCD Diet: regular, tolerating well. Visit type - Emergency Visit Emergency Visit: No - New Patient This patient is new to me today: No - Critical Care Critical Care patient: No - Discharge Referral Referred to [facility] Med P.C.: No
[2018-08-04 08:02] LABS: ALBUMIN 3.5 g/dl (3.4-5.0); ALK PHOS 118 U/L (45-117); ANION GAP 8 MMOL/L (8-16); BILIRUBIN,TOTAL 1.5 mg/dL (0.2-1); BLOOD UREA NITROGEN 9 mg/dL (7-18); CALCIUM 8.8 mg/dL (8.5-10.1); CHLORIDE 102 mmol/L (98-107); CO2 29 mmol/L (21-32); CREATININE 0.9 mg/dL (0.55-1.3); GLUCOSE,RANDOM 90 mg/dL (74-106); MAGNESIUM 2.2 mg/dL (1.8-2.4); PHOSPHOROUS 4.4 mg/dL (2.5-4.9); SGOT/AST 222 U/L (15-37); SGPT/ALT 271 U/L (13-61); SODIUM 139 mmol/L (136-145); TOT PROT 6.3 g/dl (6.4-8.2)
[2018-08-04] MEDS: DOCUSATE SODIUM 100 MG CAPSULE (FP) PO SCH (09:42)
[2018-08-04] MEDS: POLYETHYLENE GLYCOL 3350 119 GM BTL PO SCH (09:43)
[2018-08-04] MEDS ORDERED: LYTES/YERBA SANTA 240 ML BOTTLE MM SCH (10:00)
[2018-08-04] MEDS ORDERED: oxyCODONE HCL 20 MG SUSTAINED ACTING TABLET PO SCH (10:00)
[2018-08-04 11:29] VITALS: BP 119/90; PULSE 93; TEMP 98
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
--- NOTE | 2018-08-04 16:10 | PN ---
Progress Note (short form) - Note Progress Note: Marked improvement C/O incisional pain Neuro at baseline General medical parameters all WNL PLAN D/C home Pain mx Mobilize at home See in office 1 week
== END 2018-08-04 16:45 | disposition home or self-care (01) | DRG 304 ==
LOC: JSAMEDAYSX 12:20 → JICU 08-01 01:16 → J8W 08-03 17:34
PROVIDERS: ADMIT Orthopaedic Surgery Orthopaedic Surgery of the Spine; ATTEND Internal Medicine
PROC: 0ST40ZZ Resection of Lumbosacral Disc, Open Approach (ICD-10-PCS; 2018-07-31)
PROC: 07DR0ZZ Extraction of Iliac Bone Marrow, Open Approach (ICD-10-PCS; 2018-07-31)
PROC: 4A1004G Monitoring of Central Nervous Electrical Activity, Intraoperative, Open Approach (ICD-10-PCS; 2018-07-31)
PROC: B01BZZZ Fluoroscopy of Spinal Cord (ICD-10-PCS; 2018-07-31)
PROC: 0SG30AJ Fusion of Lumbosacral Joint with Interbody Fusion Device, Posterior Approach, Anterior Column, Open Approach (ICD-10-PCS; principal; 2018-07-31 14:30)
DX: M48.062 Spinal stenosis, lumbar region with neurogenic claudication (principal); M51.37 Other intervertebral disc degeneration, lumbosacral region; M48.07 Spinal stenosis, lumbosacral region; Z98.890 Other specified postprocedural states; M54.17 Radiculopathy, lumbosacral region; M53.2X6 Spinal instabilities, lumbar region; R31.0 Gross hematuria; R00.0 Tachycardia, unspecified; Z87.891 Personal history of nicotine dependence; T83.83XA Hemorrhage due to genitourinary prosthetic devices, implants and grafts, initial encounter; Y84.8 Other medical procedures as the cause of abnormal reaction of the patient, or of later complication, without mention of misadventure at the time of the procedure
CPT/HCPCS: 36415; 71045-TC-FY; 80048; 80053; 83735; 84100; 85025; 85027; 86850; 86900; 86901; 88304-TC; 94760; 97116-GP; 97161-GP; J0131; J1644